=== PATIENT | female | born 1980 | race Caucasian/White ===

== ENCOUNTER 2024-05-03 08:29 | Emergency (ER) | payer OTHER ==
[~2024-05-03] VITALS: Ht 152.4 cm; Wt 72.6 kg
[2024-05-03] MEDS ORDERED: BENZ-13 PO (09:05)
[2024-05-03] MEDS ORDERED: AMOX-430 PO (09:05)
[2024-05-03 09:42] VITALS: BP 132/80; TEMP 98.5; O2SAT 100
== END 2024-05-03 09:43 | disposition home or self-care (01) ==
LOC: ER 08:40
DX: J06.9 Acute upper respiratory infection, unspecified (principal); H66.91 Otitis media, unspecified, right ear; R06.02 Shortness of breath; R05.9 Cough, unspecified